=== PATIENT | male | born 1965 | race Caucasian/White ===

== ENCOUNTER 2016-09-19 10:46 | Emergency (ER) | payer BC ==
[~2016-09-19 10:46] MED LIST: FLORASTOR250 MG PO; LOPERAMIDE PO; NEUR300 PO; NEXIUM20 M1 PO; NORCO1 TAB PO; PCET PO; PEP20 PO; PR25 PO; PRILO PO; PRILOSEC10 MG PO; SUCR PO; V5 PO; ZANAFLEX 4 MG TA4 MG PO
[2016-09-19 11:03] LABS: BASOPHILS 0.1 %; BASOPHILS ABSOLUTE 0.01 10/3/uL (0.0-0.16); EOSINOPHILS 1.4 %; IMMATURE GRANULOCYTES 0.1 %; IMMATURE GRANULOCYTES ABSOLUTE 0.01 10/3/uL (0.0-0.11); LYMPHOCYTES 36.2 %; LYMPHOCYTES ABSOLUTE 2.52 10/3/uL (0.67-4.30); MEAN CORPUS HGB CONC 33.5 g/dL (32.0-36.0); MEAN CORPUSCULAR HEMOGLOB 31.3 pg (26.0-34.0); MEAN PLATELET VOLUME 9.9 fL (9.2-13.0); MONOCYTES 7.2 %; NEUTROPHILS ABSOLUTE 3.82 10/3/uL (2.02-8.40); PLATELET COUNT 204 10/3/uL (150-400); RED CELL COUNT 5.15 10/6/uL (4.7-6.1)
[2016-09-19 11:05] LABS: HEMATOCRIT 48.1 % (40.0-51.0); HEMOGLOBIN 16.1 g/dL (13.6-17.8); MANUAL DIFF NO %; MEAN CORPUSCULAR VOLUME 93.4 fL (80-100)
[2016-09-19 11:20] LABS: BUN (BLOOD UREA NITROGEN) 7 MG/DL (6-23); CALCIUM, SERUM 8.9 MG/DL (8.5-10.4); CHLORIDE, SERUM 109 MMOL/L (96-112); CO2 (CARBON DIOXIDE) 29 MMOL/L (24-34); CREATININE 0.93 MG/DL (0.70-1.30); GFR AFRICAN AMERICAN 110 ML/MIN (>=60); GFR NON AFRICAN AMERICAN 95 ML/MIN (>=60); GLUCOSE, SERUM 104 MG/DL (60-99); SGOT(AST) 19 U/L (5-40); SGPT(ALT) 25 U/L (5-65); SODIUM, SERUM 144 MMOL/L (135-148); TOTAL BILIRUBIN 0.2 MG/DL (0-1.2)
[2016-09-19 11:22] LABS: A/G RATIO 1.2 (0.7-1.9); ALKALINE PHOSPHATASE 63 U/L (45-117); GLOBULIN 3.4 G/DL (2.5-4.1); POTASSIUM, SERUM 4.3 MMOL/L (3.5-5.3); TOTAL PROTEIN 7.4 G/DL (6.0-8.5)
== END 2016-09-19 14:38 | disposition home or self-care (01) ==
LOC: ER 10:46
PROVIDERS: Emergency Medicine
DX: M51.36 Other intervertebral disc degeneration, lumbar region (principal); F41.9 Anxiety disorder, unspecified; F32.9 Major depressive disorder, single episode, unspecified; M46.96 Unspecified inflammatory spondylopathy, lumbar region; K21.9 Gastro-esophageal reflux disease without esophagitis; Z88.8 Allergy status to other drugs, medicaments and biological substances; Z79.899 Other long term (current) drug therapy
CPT/HCPCS: 72131; 72220; 80053; 85025; 96374; 96375; 96376; 99284; A9270-GY; J1170; J2405; J2930